=== PATIENT | male | born 1965 | race Caucasian/White ===

== ENCOUNTER 2017-02-01 03:35 | Inpatient (IN) | payer OTHER ==
[~2017-02-01] VITALS: Ht 172.7 cm; Wt 145.2 kg
--- NOTE | 2017-02-01 14:13 | Patient Discharge Instructions ---
Discharge Instructions General Discharge Information You were seen/treated for: LEFT KNEE PAIN RELATED TO OSTEOARTHRITIS You had these procedures: LEFT TOTAL KNEE REPLACEMENT Watch for these problems: Increasing pain despite the use of pain medication. Increasing redness, warmth, swelling. Drainage of any type from incision. Inability to bear weight on left leg. Persistent nausea and vomitting. Fever greater than 101.5 degrees. Do not soak the wound: Yes No bath, but you may shower: Yes Other wound care: Keep wound clean and dry. No ointments of any type on or near incision at any time. No exceptions. Dressing will be changed on the second day following your surgery. Clean and dry dressing changes recommended daily thereafter. Special Instructions: Aspirin: You are taking aspirin 325 mg twice daily for 4 weeks to help protect you from developing a blood clot. Please take as directed, and please take with food. You may also take Prilosec to help protect your stomach while on this medication. Constipation: Pain medication can be very constipating. Please take colace and miralax as directed to help you move your bowels. If you develop diarrhea, you may stop taking this medication. If you are unable to move your bowels after several days, or if you are unable to pass gas, please contact your dr. Diet Continue normal diet: Yes Recommended Diet: Regular Additional DIET Information: Advance as tolerated Activity Full Activity/No Limits: Yes Activity Self Limited: Yes Pounds, do NOT lift more than: 10 Activity Limited to: Weight bear as tolerated Acute Coronary Syndrome Inclusion Criteria At [place] or during hospital stay patient has or had the following: ACS DIAGNOSIS No Discharge Core Measures Meds if any: Prescribed or Continued at Discharge Meds if any: NOT Prescribed or Continued at Discharge Congestive Heart Failure Inclusion Criteria At [place] or during hospital stay patient has or had the following: CHF DIAGNOSIS No Discharge Core Measures Meds if any: Prescribed or Continued at Discharge Meds if any: NOT Prescribed or Continued at Discharge Cerebrovascular accident Inclusion Criteria At [place] or during hospital stay patient has or had the following: CVA/TIA Diagnosis No Discharge Core Measures Meds if any: Prescribed or Continued at Discharge Meds if any: NOT Prescribed or Continued at Discharge Venous thromboembolism Inclusion Criteria VTE Diagnosis No VTE Type NONE VTE Confirmed by (Test) NONE Discharge Core Measures - Per Current guidelines, there needs to be overlap - treatment for the first 5 days of Warfarin therapy. - If discharged on Warfarin prior to 5 days of - overlap therapy, the patient will need to be - assessed for post discharge needs including - *Post discharge parental anticoagulation - *Warfarin and/or parental anticoagulation education - *Follow up date to check INR post discharge At least 5 days overlap therapy as Inpatient No Meds if any: Prescribed or Continued at Discharge Note: Overlap Therapy is Warfarin and Anticoagulant Meds if any: NOT Prescribed or Continued at Discharge
--- NOTE | 2017-02-01 14:14 | Admission Core Measures ---
Admission Meds I reviewed the following Meds: Current Medications Sig/Edith Start time Last Medication Dose Stop Time Status Admin Acetaminophen 975 MG ONCE 02/01 0000 NR (Tylenol) 02/01 2359 Cefazolin Sodium 3,000 MG ONCE 02/01 0000 NR (Kefzol-Ancef Inj) 02/01 2359 Oxycodone HCl 10 MG ONCE 02/01 0000 NR (Roxicodone) 02/01 2359 Ropivacaine 500 ML ONCE ONE 02/01 1300 AC (NAROPIN) 02/03 0639 ON-Q Ball 1 BAG Acute Coronary Syndrome Inclusion Criteria ACS Diagnosis No Inpatient Core Measures LDL Reminder: If No, please order W/I first 24hr of stay Congestive Heart Failure Inclusion Criteria CHF Diagnosis No Cerebrovascular accident Inclusion Criteria CVA/TIA Diagnosis No Inpatient Core Measures Bedside Swallow Eval Reminder: If BSE failed, place ST order Antithrombotic Reminder: Order Antithrombotic Medication by end of day 2 Antithrombotic Reminder: Document Reason Antithrombotic Not ordered by end of day 2 AFIB/Flutter Reminder: If Present, add to problem list AFIB/Flutter Reminder: Order Anticoag Medication for pts with AFIB/Flutter Atherosclerosis Reminder: If Present, add to problem list LDL Reminder: If No, please order W/I first 24hr of stay PT Order Reminder: If No, please order Venous thromboembolism Inpatient Core Measures VTE Risk Factors: Age > 40, [facility] prophylaxis d/t No contraindications No VTE Pharm Prophylaxis d/t No contraindications Inclusion Criteria - Per Current guidelines, there needs to be overlap - treatment for the first 5 days of Warfarin therapy. - Parenteral Anticoagulation (IV or SC) needs to be - given along with Warfarin therapy. VTE Diagnosis No VTE Type NONE VTE Confirmed by (Test) NONE Problem List As ranked by this Provider includes Assessment & Plan 1. Unilateral primary osteoarthritis, left knee
--- NOTE | 2017-02-01 14:21 | Surgical Discharge Summary ---
Visit Information Visit Dates Admission Date: 02/01/17 Discharge Date: 02/03/17 History of Present Illness Chief Complaint: left knee pain related to osteoarthritis Surgical History Pertinent Surgical History: non-contributory Review of Systems: See H&P Hospital Course Course Attending Physician: JACQUES RIVAS MD Primary Care Physician: SHIRA YOUSSEF,[facility] Course: Tavares was admitted to the hospital on 02/01/2017 for an elective left total knee replacement. He tolerated the procedure well and was transferred to a general surgical floor. There, his vital signs remained stable and within normal limits and he remained neurovascularly intact. His diet was advanced and tolerated. His pain was adequately controlled with oral pain medication. He was evaluated and treated by physical therapy and deemed appropriate for discharge. Allergies: Coded Allergies: No Known Allergies (01/31/17) Disposition Summary Disposition Principal Diagnosis: Left knee unilateral primary osteoarthritis Additional Diagnosis: none Discharge Disposition: home health services Discharge Instructions General Discharge Information Code Status: Full Code Patient's Diet: Regular, advance as tolerated Patient's Activity: WBAT Follow-Up Instructions/Appts: Follow up in office with Dr. Rivas in 6 weeks from date of surgery. Medications at Discharge Discharge Medications: Continue taking these medications: Lisinopril (Lisinopril) 20 MG TABLET 1 Tablet ORAL DAILY Comments: Last Taken: 02/03/17 Time: 929 Hydrochlorothiazide (Hydrochlorothiazide) 25 MG TABLET 1 Tablet ORAL DAILY Comments: Last Taken: 02/03/17 Time: 0930 Start taking the following new medications: Aspirin (Ecotrin*) 325 MG TABLET.DR 1 Tablet ORAL TWICE DAILY Qty = 60 No Refills Comments: Last Taken: 02/03/17 Time: 0930 Docusate Sodium (Colace) 100 MG CAPSULE 1 Capsule ORAL TWICE DAILY Qty = 14 No Refills Instructions: DISCONTINUE USE IF YOU DEVELOP LOOSE STOOL OR DIARRHEA Comments: Last Taken: 02/03/17 Time: 0930 Hydromorphone HCl (Dilaudid) 2 MG TABLET 1-2 Tablet ORAL EVERY 4-6 HOURS as needed for PAIN Qty = 36 No Refills Comments: Last Taken: 02/03/17 Time: 0736 Polyethylene Glycol 3350 (Miralax) 17 GRAM POWD.PACK 1 Packet ORAL DAILY Qty = 7 No Refills Instructions: dissolve in water, DISCONTINUE USE IF YOU DEVELOP LOOSE STOOL OR DIARRHEA Comments: Last Taken: 02/03/17 Time: 09 Morphine Sulfate (Ms Contin) 30 MG TABLET.ER 1 Tablet ORAL TWICE DAILY Qty = 6 No Refills Comments: NOT TAKEN IN HOSPITAL Omeprazole Magnesium (Prilosec Otc) 20 MG TABLET.DR 1 Tablet ORAL DAILY Qty = 30 No Refills Comments: Last Taken: 02/03/17 Time: 0538 Diazepam (Valium) 5 MG TABLET 1 Tablet ORAL THREE TIMES A DAY NEEDED Qty = 21 No Refills Comments: Last Taken: 02/03/17 Time: 09
[2017-02-01] MEDS ORDERED: MS CONTIN30 M1 PO (14:23)
[2017-02-01] MEDS ORDERED: PRILOSEC OTC20 M1 PO (14:23)
[2017-02-01] MEDS ORDERED: MIRALAX17 G1 PO (14:23)
[2017-02-01] MEDS ORDERED: COLACE100 M1 PO (14:23)
[2017-02-01] MEDS ORDERED: ASPIRIN EC325 M2 PO (14:23)
[2017-02-01] MEDS ORDERED: DILAUDID2 M1 PO (14:23)
--- NOTE | 2017-02-01 16:09 | NUR ---
PHYSICAL THERAPY: SPOKE WITH BORA MONTERROSO AWAITING TO GIVE REPORT TO RECIEVING RN PRIOR HAVING PATIENT TRANSPORTED TO [facility]. UNSURE OF ARRIVAL TIME TO FLOOR. P.T. WILL F/U APPROPRAITE FOR EVALUATION.
--- NOTE | 2017-02-01 16:32 | PN- Orthopedic ---
Subjective Subjective: POSTOP CHECK spinal still on board, no pain, no cp/sob/n/v. hungry. no oob yet Objective Vital Signs and I&Os Intake & Output 02/01 1600 02/01 0802/01 0000 01/31 0801/31 0000 Intake Total Output Total Balance Patient 320 lb Weight BP 150s/80. HR 70s. 96%2LNC. Afebrile Physical Exam: gen: nad card: s1s2 rrr pulm: ctab abd: obese soft nt ext: LLE dressed, eulalia cdi, limited senate and motor due to active spinal anesthesia, foot warm, pink. ONQ pump in place, ice pack in place Assessment/Plan Assessment/Plan POD1 sp Left TKR, stable, with spinal anesthesia still active. PLAN: reassess neurovasc checks once anesthesia metabolized reg diet home meds prn pain meds OOB with PT ASA BID am labs likely dc cortez, ivf, o2 in am DC planning Core Measures/Miscellaneous Venous Thromboembolism VTE Risk Factors: Age > 40, Surgery VTE Contraindications: No Contraindications VTE Diagnosis: No VTE Type: NONE VTE Confirmed by (Test): NONE Beta Dick Is Beta Dick a Home Med? No Antibiotics Is Patient on Antibiotics? Yes If Yes: prophylaxis
[2017-02-01 16:36] VITALS: BP 150/92
--- NOTE | 2017-02-01 16:36 | NUR ---
PT ARRIVED TO FLOOR VIA STRETCHER, AO, RA, C/O DECREASED SENATION IN LLE BUT +PULSES, AND MOVEMENT, NO C/O, VSS, ONCQ PUMP IN PLACE, IV INTACT, FLUIDS RUNNING, TOLERATING PO INTAKE, MARIO DRAINING CLEAR YELLOW URINE, ADMISSION COMPLETE, ORIENTED TO ROOM AND CALL LIGHT, WILL CONTINUE TO MONITOR.
--- NOTE | 2017-02-01 17:50 | Operative Report ---
Operative/Inv Procedure Report Surgery Date: 02/01/17 Name of Procedure: 1. Left total knee replacement 2. Right knee cortisone injection Pre-Operative Diagnosis: Bilateral primary knee DJD Post-Operative Diagnosis: Same Estimated Blood Loss: 50ml to 100ml Surgeon/Home Specialist: ROB YOUSSEF,JACQUES Koo Anesthesia: block Operative/Procedure Note Note: Description of Procedure: The patient was taken to the operating room and positively identified. After induction of spinal anesthesia and administration of appropriate pre-operative antibiotics, the patient was positioned supine on the operating room table and all bony prominences were well padded. The right knee was prepped sterilely and injected with a mixture of 2 mL of Depo -Medrol and 8 mL of Marcaine. A Band-Aid Was Placed over the Injection Site. A well-padded pneumatic tourniquet was placed on the left upper thigh. After performing a surgical timeout, the left lower extremity was prepped and draped in the usual sterile fashion. After exsanguination with Esmarch the tourniquet was inflated to 250mm of mercury. A standard medial parapatellar approach was made to the knee. This was carried down through skin and subcutaneous tissue to the level of the fascia. Meticulous hemostasis was maintained with Bovie electrocautery. The extensor mechanism and patellar retinaculum were opened sharply and the patella was everted. The infrapatellar fat was resected in order to improve exposure. Osteophytes were trimmed from the patella and femoral condyles and the patella was re-everted and tucked laterally. A medial release was performed and the cruciate ligaments were resected. The tibia was then subluxed anteriorly. Utilizing the appropriate extra-medullary guide, the proximal tibia was trimmed perpendicular to the long axis of the tibial shaft. Attention was then turned to the femur. After opening the medullary canal, the distal femoral cut was made in 6 degrees of valgus utilizing the appropriate intra-medullary guide. The extension gap was checked and found to be appropriate. The femur was then sized and the remainder of the femoral cuts were made with a size 4 4-in-1 femoral cutting guide. The flexion gap was checked and found to be symmetric and appropriate. The knee was then trialed with a size 4 femoral component, a size 4 tibial component and a size 11 mm polyethylene insert. The patella was not resurfaced due to its excellent preoperative condition. This yielded excellent range of motion, stability and patellar tracking. All trial components were removed and the knee was copiously irrigated with sterile saline. All components were cemented into place with Liliam Simplex cement. All the components were of the Liliam Triathlon knee system of the above stated sizes. The knee was again irrigated after cementation. The extensor mechanism and patellar retinaculum were repaired using interrupted #1 vicryl suture. The skin was re-approximated with 2-0 vicryl and closed with luz elena. A sterile dressing was applied, the tourniquet was deflated, the patient was awakened and taken to the recovery room in satisfactory condition.
--- NOTE | 2017-02-01 19:00 | NUR ---
MST INFORMED THIS RN THAT PTS BP 160/110, INFORMED STEPHANIE HUNT, WHO INSTRUCTED TO ADMINISTER LISINOPRIL AND RECHECK HOUR AFTER GIVING, THIS RN REPORTED ORDER TO ONCOMING RN, WILL CONTINUE TO MONITOR.
[2017-02-01 19:17] VITALS: BP 160/110
[2017-02-01 20:54] VITALS: BP 170/100
[2017-02-01 23:16] VITALS: BP 148/78
[2017-02-02 01:56] VITALS: BP 134/70
[2017-02-02 06:00] VITALS: BP 140/68
[2017-02-02 08:35] LABS: ABSOLUTE BASOPHIL COUNT 0 /CUMM (0.0-0.2); ABSOLUTE EOSINOPHIL COUNT 0 /CUMM (0.0-0.7); ABSOLUTE GRANULOCYTE CT 13.5 /CUMM (1.4-6.5); ABSOLUTE LYMPH COUNT 1.1 /CUMM (1.2-3.4); ABSOLUTE MONOCYTE COUNT 0.7 /CUMM (0.10-0.60); BASOPHIL % 0 % (0.0-2.0); EOSINOPHIL % 0 % (0-5); HEMATOCRIT 41.2 % (42-52); MEAN CORPUSCULAR HGB CONC 34.2 G/DL (33.0-37.0); MEAN CORPUSCULAR VOLUME 90.7 FL (80.0-94.0); MEAN PLATELET VOLUME 9.1 FL (7.4-10.4); PLATELET COUNT 233 /CUMM (130-400); RBC DISTRIBUTION WIDTH 12.9 % (11.5-14.5); RED BLOOD CELL CT 4.54 /CUMM (4.70-6.10); WHITE BLOOD CELL COUNT 15.2 /CUMM (4.8-10.8)
--- NOTE | 2017-02-02 09:14 | PN- Orthopedic ---
Subjective Subjective: Awake, alert No complaints Ambulating in room without difficulty Pain well controlled with meds and On Q Objective Vital Signs and I&Os Vital Signs Date Time Temp Pulse Resp B/P B/P Pulse O2 O2 Flow FiO2 Mean Ox Delivery Rate 02/02 0600 98.6 57 18 140/68 95 Room Air 02/02 0156 98.8 75 20 134/70 94 CPAP 02/02 0000 CPAP 02/01 2316 99.3 96 20 148/78 95 CPAP 02/01 2110 89 97 02/01 2100 Room Air Room Air 02/01 2054 99.2 92 18 170/100 96 Room Air 02/01 2045 92 170/100 02/01 1917 98.1 84 20 160/110 95 Room Air 02/01 1636 98.6 66 20 150/92 96 Room Air Intake & Output 02/02 1600 02/02 0800 02/02 0000 02/01 1600 02/01 0800 02/01 0000 Intake Total 850 720 Output Total 1200 2400 Balance -350 -1680 Intake, IV 600 600 Intake, Oral 250 120 Number 1 0 Bowel Movements Output, Urine 1200 2400 Patient 320 lb Weight Weight Reported by Patient Measurement Method Physical Exam: Tmax, 99.3 vss Last night had some hypertension to 170, begun on lisinopril/hctz as in pharm med rec. Pt hasn't been taking this recently but will restart it now General: alert and oriented times three Chest:clear anteriorly bilaterally, RRR Abd: soft, good bs Ext: warm, no edema, positive sensate, no calf tenderness Wound: dressed, dry Assessment/Plan Assessment/Plan 51 yo male s/p L TKA pod 1 pain mgmt dc cortez dc ivf ambulate dc planning Core Measures/Miscellaneous Venous Thromboembolism VTE Risk Factors: Age > 40, Surgery VTE Contraindications: No Contraindications VTE Diagnosis: No VTE Type: NONE VTE Confirmed by (Test): NONE Beta Dick Is Beta Dick a Home Med? No Antibiotics Is Patient on Antibiotics? Yes If Yes: prophylaxis
[2017-02-02 09:43] LABS: GRANULOCYTE % 88.5 % (42.2-75.2)
[2017-02-02 09:52] VITALS: BP 150/70
[2017-02-02 11:35] VITALS: BP 118/60
[2017-02-02 14:23] VITALS: BP 140/80
[2017-02-02] MEDS ORDERED: LISINOPRIL20 M1 PO (15:56)
[2017-02-02] MEDS ORDERED: HYDROCHLOROTHIA25 M1 PO (15:56)
[2017-02-02 22:29] VITALS: BP 178/90
--- NOTE | 2017-02-02 22:42 | NUR ---
BP 178/90. PT ASYMPTOMATIC. CATARINO BROWN AWARE. WILL MONITOR
[2017-02-03 00:23] VITALS: BP 138/82
[2017-02-03 06:30] VITALS: BP 132/78
--- NOTE | 2017-02-03 07:22 | PN- Orthopedic ---
Subjective Subjective: POD#2 S/P LEFT TKA NO MAJOR ISSUES OVERNIGHT COMFORTABLE NOW Objective Vital Signs and I&Os Vital Signs Date Time Temp Pulse Resp B/P B/P Pulse O2 O2 Flow FiO2 Mean Ox Delivery Rate 02/03 0630 98.1 73 20 132/78 94 Room Air 02/03 0023 70 138/82 02/03 0000 96 CPAP 02/02 2229 98.3 76 20 178/90 96 CPAP 02/02 1423 97.7 73 20 140/80 97 Room Air 02/02 1135 97.8 78 20 118/60 95 Room Air 02/02 0952 98.5 85 20 150/70 95 Room Air 02/02 0950 85 150/70 Intake & Output 02/03 0800 02/03 0000 02/02 1600 02/02 0800 02/02 0000 02/01 1600 Intake Total 300 600 925 850 720 Output Total 1500 6336 780 8926 2400 Balance -1200 -600 -25 -350 -1680 Intake, IV 125 600 600 Intake, Oral 300 600 800 250 120 Number 0 1 0 Bowel Movements Output, Urine 1500 1884 629 [id number] 2400 Patient 320 lb Weight Weight Reported by Patient Measurement Method Physical Exam: CV: RRR LUNGS: CLEAR ABD: SOFT, +BS EXT: DRSG CHANGED, WOUND C/D/I NO CALF TENDERNESS BILAT DISTAL CMS INTACT Assessment/Plan Assessment/Plan ORTHO STABLE PLAN HOME TODAY F/U DR RIVAS 6 WEEKS Core Measures/Miscellaneous Venous Thromboembolism VTE Risk Factors: Age > 40, Surgery VTE Contraindications: No Contraindications VTE Diagnosis: No VTE Type: NONE VTE Confirmed by (Test): NONE Beta Dick Is Beta Dick a Home Med? No Antibiotics Is Patient on Antibiotics? Yes If Yes: prophylaxis
[2017-02-03] MEDS ORDERED: VALIUM5 M2 PO (09:12)
[2017-02-03 09:25] VITALS: BP 142/76
== END 2017-02-03 12:41 | disposition home health service (06) | DRG 470 ==
LOC: SDA 03:35 → ENRESERV 15:56 → 2NA 16:39 → ENPENDDIS 02-03 07:47 → 2NA 02-03 12:41
PROVIDERS: Nurse Practitioner; ADMIT Orthopaedic Surgery
PROC: 3E0U33Z Introduction of Anti-inflammatory into Joints, Percutaneous Approach (ICD-10-PCS; principal; 2017-02-01)
PROC: 0SRD0J9 Replacement of Left Knee Joint with Synthetic Substitute, Cemented, Open Approach (ICD-10-PCS; principal; 2017-02-01)
PROC: 3E0U3BZ Introduction of Anesthetic Agent into Joints, Percutaneous Approach (ICD-10-PCS; principal; 2017-02-01)
PROC: 3E0T3CZ (ICD-10-PCS; 2017-02-01)
DX: M17.0 Bilateral primary osteoarthritis of knee (principal); Z68.42 Body mass index [BMI] 45.0-49.9, adult; I10 Essential (primary) hypertension; E66.01 Morbid (severe) obesity due to excess calories; G47.33 Obstructive sleep apnea (adult) (pediatric); E78.00 Pure hypercholesterolemia, unspecified
CPT/HCPCS: 2NASP; 82436; 88305; 97110-GO; 97116-GO; 97161-GP; 97530-GO; C1713; J0131; J0690; J2405; J2550; J2795; J7042